=== PATIENT | male | born 1985 | race African-American/Black ===

== ENCOUNTER 2018-07-03 07:06 | Emergency (ER) | payer SELFPAY ==
[~2018-07-03] VITALS: Ht 182.9 cm; Wt 83.9 kg
[2018-07-03] MEDS ORDERED: IBUPROFEN 600 MG TABLET. PO ONE (07:15)
[2018-07-03 07:18] VITALS: BP 145/72
--- NOTE | 2018-07-03 07:52 | RAD ---
Left shoulder radiograph 07/03/2018 7:23 AM INDICATION: Left shoulder pain after fall COMPARISON: None available. TECHNIQUE: 3 views of the left shoulder are provided. FINDINGS: There is no acute fracture or dislocation involving the glenohumeral and acromioclavicular joints. Bone mineralization is within normal limits. Joint spaces are maintained. Regional soft tissues are within normal limits. There is no soft tissue gas or osseous erosion. IMPRESSION: No acute fracture or dislocation. Electronically signed by: Izabela Duran MD (07/03/2018 7:48 AM) [facility]
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
== END 2018-07-03 08:04 | disposition home or self-care (01) ==
LOC: ER 07:06
DX: S49.82XA Other specified injuries of left shoulder and upper arm, initial encounter (principal); V87.8XXA Person injured in other specified noncollision transport accidents involving motor vehicle (traffic), initial encounter; Y93.55 Activity, bike riding; Y92.410 Unspecified street and highway as the place of occurrence of the external cause; Y99.8 Other external cause status
CPT/HCPCS: 73030; 99283